=== PATIENT | female | born 1925 | race Caucasian/White ===

== ENCOUNTER 2017-03-12 00:50 | Inpatient (IN) | payer OTHER, MEDICAID ==
[~2017-03-12] VITALS: Ht 160 cm; Wt 49.0 kg
[2017-03-12] VITALS (10 sets, daily range): BP systolic 123–177
[~2017-03-12 00:50] MED LIST: ACT35 PO; AMLODIPINE BESYLATE PO; ASCO-339 PO; BUPR75TA20 PO; CALC-507 PO; LACT1CAP69 PO; PRO40 PO; SOTA80TA PO
[2017-03-12] MEDS ORDERED: NACL 0.9% 1,000 ML IV ONE (01:00)
[2017-03-12 02:05] LABS: ANION GAP 4 (5-15); CALCIUM 8.6 mg/dL (8.4-11.0); CHLORIDE 104 mmol/L (98-107); CREATININE 1.19 mg/dL (0.55-1.30); GLUCOSE 146 mg/dL (70-99); POTASSIUM 3.7 mmol/L (3.5-5.1); SODIUM SERUM 137 mmol/L (136-145); UREA NITROGEN, BLOOD 29 mg/dL (8-21)
[2017-03-12 02:15] LABS: ALANINE AMINOTRANSFERASE 10 U/L (12-78); ALBUMIN 1.6 g/dL (3.4-4.8); ASPARTATE AMINOTRANSFERASE 22 U/L (10-37); TOTAL BILIRUBIN 0.2 mg/dL (0.0-1.0); TOTAL PROTEIN, SERUM 6.8 g/dL (6.4-8.3)
[2017-03-12] MEDS ORDERED: PIPERACILLIN/TAZO 3.38 GM in D5W 50 ML IV ONE (02:15)
[2017-03-12 02:26] LABS: HEMOGLOBIN 9.1 g/dL (12.0-16.0); INR 1.1 (0.8-1.2); MEAN CORPUSCULAR HEMOGLOBIN 28 pg (27-31); MEAN CORPUSCULAR HGB CONC 33 % (32-36); MEAN CORPUSCULAR VOLUME 87 fL (79.0-98.0); PROTHROMBIN TIME 12.1 SECS (9.5-12.5); RED BLOOD CELL COUNT(AUTO) 3.21 MIL/uL (4.2-6.2); RED CELL DISTRIBUTION WIDTH 14.9 % (9.0-15.0)
[2017-03-12 02:33] LABS: PLATELET COUNT (AUTO) 169 K/uL (130-430)
[2017-03-12] MEDS ORDERED: PIPERACILLIN/TAZOBACTAM 3.375 GM/VIAL (ZOSYN) IV ONE (02:39)
[2017-03-12 03:08] LABS: BAND % (MANUAL) 3 % (0-6); BASOPHILS % (MANUAL) 0 % (0-2); EOSINOPHILS % (MANUAL) 0 % (0-7); LYMPHOCYTES % (MANUAL) 2 % (20-46); MONOCYTES % (MANUAL) 10 % (0-11)
[2017-03-12] MEDS ORDERED: CRAN450C PO (03:09)
[2017-03-12] MEDS ORDERED: DOCU-144 PO (03:10)
[2017-03-12] MEDS ORDERED: FLUT16SP16 NS (03:12)
[2017-03-12] MEDS ORDERED: AMLO2.5T2 PO (03:13)
[2017-03-12] MEDS ORDERED: LISI10TA PO (03:13)
[2017-03-12] MEDS ORDERED: MELA3TAB37 PO (03:13)
[2017-03-12] MEDS ORDERED: METO5TAB86 PO (03:14)
[2017-03-12] MEDS ORDERED: SOTA80TA PO (03:15)
[2017-03-12] MEDS ORDERED: ALBUTEROL SULFATE 0.083% 2.5 MG/3 ML VIAL.NEB INH PRN (03:15)
[2017-03-12] MEDS ORDERED: TRAM50TA92 PO (03:16)
[2017-03-12] MEDS ORDERED: ACET-2165 PO ×2 (03:16→03:17)
[2017-03-12] MEDS ORDERED: ASCO500T20 PO (03:17)
[2017-03-12] MEDS ORDERED: FLECTOR 1.3% TD ×2 (03:23→03:24)
[2017-03-12] MEDS ORDERED: traMADol HCL HCL 50 MG TABLET (ULTRAM) PO PRN (03:45)
[2017-03-12] MEDS ORDERED: ACETAMINOPHEN 325 MG TABLET PO PRN (03:45)
[2017-03-12] MEDS ORDERED: VANCOMYCIN HCL 1,000 MG in NS 250 ML IV SCH (06:00)
[2017-03-12] MEDS: ALBUTEROL SULFATE 0.083% 2.5 MG/3 ML VIAL.NEB INH SCH ×5 (07:13→23:14)
[2017-03-12] MEDS: LISINOPRIL 10 MG TABLET (PRINIVIL) PO SCH (08:47)
[2017-03-12] MEDS: DOCUSATE SODIUM 100 MG CAPSULE PO SCH (08:47)
[2017-03-12] MEDS: PANTOPRAZOLE SODIUM 40 MG TAB PO SCH (08:47)
[2017-03-12] MEDS: METOCLOPRAMIDE HCL 10 MG TABLET PO SCH (08:48)
[2017-03-12] MEDS: amLODIPine BESYLATE 5 MG TABLET PO SCH (08:48)
[2017-03-12] MEDS: ASCORBIC ACID 500 MG TABLET PO SCH (08:48)
[2017-03-12] MEDS ORDERED: NON-FORMULARY MEDICATION (Metoclopramide Hcl (Reglan) 5 MG) PO SCH (09:00)
[2017-03-12] MEDS ORDERED: NON-FORMULARY MEDICATION (Cranberry Fruit Concentrate (Cranberry) 450 MG) PO SCH (09:00)
[2017-03-12] MEDS: SOTALOL HCL 80 MG TABLET PO SCH ×2 (09:00→20:42)
[2017-03-12] MEDS ORDERED: FLECTOR 1.3% TD SCH (09:00)
[2017-03-12] MEDS: PIPERACILLIN/TAZO 3.375 GM in NS 50 ML IV SCH ×4 (11:05→23:49)
[2017-03-12] MEDS ORDERED: FUROSEMIDE 40 MG/4 ML VIAL IVP ONE (11:45)
[2017-03-12] MEDS ORDERED: NON-FORMULARY MEDICATION (Melatonin 1 TAB) PO SCH (21:00)
[2017-03-13] MEDS: ALBUTEROL SULFATE 0.083% 2.5 MG/3 ML VIAL.NEB INH SCH ×4 (03:46→15:18)
[2017-03-13] MEDS: PIPERACILLIN/TAZO 3.375 GM in NS 50 ML IV SCH ×2 (05:13→13:03)
[2017-03-13 05:34] VITALS: BP_SYST 162
[2017-03-13 05:54] VITALS: BP_SYST 151
[2017-03-13 07:55] VITALS: BP_SYST 144
[2017-03-13 08:53] LABS: HEMATOCRIT 29.8 % (36-48); HEMOGLOBIN 9.8 g/dL (12.0-16.0); MEAN CORPUSCULAR HEMOGLOBIN 28 pg (27-31); MEAN CORPUSCULAR HGB CONC 33 % (32-36); MEAN CORPUSCULAR VOLUME 85 fL (79.0-98.0); PLATELET COUNT (AUTO) 171 K/uL (130-430); RED BLOOD CELL COUNT(AUTO) 3.52 MIL/uL (4.2-6.2); RED CELL DISTRIBUTION WIDTH 14.9 % (9.0-15.0); WHITE BLOOD COUNT (AUTO) 24.6 K/uL (4.8-10.8)
[2017-03-13 08:59] LABS: ANION GAP 7 (5-15); CALCIUM 8.3 mg/dL (8.4-11.0); CHLORIDE 104 mmol/L (98-107); CREATININE 1.22 mg/dL (0.55-1.30); GLUCOSE 104 mg/dL (70-99); SODIUM SERUM 143 mmol/L (136-145); UREA NITROGEN, BLOOD 28 mg/dL (8-21)
[2017-03-13] MEDS ORDERED: FUROSEMIDE 40 MG/4 ML VIAL IVP SCH (09:00)
[2017-03-13 09:20] LABS: ALANINE AMINOTRANSFERASE 18 U/L (12-78); ALBUMIN 1.7 g/dL (3.4-4.8); ASPARTATE AMINOTRANSFERASE 28 U/L (10-37); THYROID STIMULATING HORMONE 0.78 uIu/mL (0.36-3.74); TOTAL BILIRUBIN 0.4 mg/dL (0.0-1.0); TOTAL PROTEIN, SERUM 6.9 g/dL (6.4-8.3)
[2017-03-13] MEDS: LISINOPRIL 10 MG TABLET (PRINIVIL) PO SCH (10:02)
[2017-03-13] MEDS: PANTOPRAZOLE SODIUM 40 MG TAB PO SCH (10:03)
[2017-03-13] MEDS: DOCUSATE SODIUM 100 MG CAPSULE PO SCH (10:03)
[2017-03-13] MEDS: amLODIPine BESYLATE 5 MG TABLET PO SCH (10:04)
[2017-03-13] MEDS: SOTALOL HCL 80 MG TABLET PO SCH (10:05)
[2017-03-13] MEDS: ASCORBIC ACID 500 MG TABLET PO SCH (10:06)
[2017-03-13] MEDS: METOCLOPRAMIDE HCL 10 MG TABLET PO SCH (10:07)
[2017-03-13 12:10] LABS: APPEARANCE,SPUN,BODY FLUID CLEAR (CLEAR); BF APPEARANCE UNSPUN HAZY (CLEAR); BODY FLUID COLOR YELLOW (LT YELLOW); BODY FLUID SOURCE/ TYPE PLEURAL; BODY FLUID TOTAL VOLUME 1000 mL; SOURCE/TYPE ,BODY FLUID PLEURAL; WBC, BODY FLUID 1033 /uL
[2017-03-13 12:11] LABS: MONOCYTES,BODY FLUID 20 %; NEUTROPHIL, BODY FLUID 80 %; RBC, BODY FLUID 475 /uL
[2017-03-13 12:16] LABS: BAND % (MANUAL) 2 % (0-6); BASOPHILS % (MANUAL) 0 % (0-2); EOSINOPHILS % (MANUAL) 0 % (0-7); LYMPHOCYTES % (MANUAL) 5 % (20-46); MONOCYTES % (MANUAL) 4 % (0-11)
[2017-03-13 12:50] VITALS: BP_SYST 159
[2017-03-13] MEDS ORDERED: POTASSIUM CHLORIDE 20 MEQ/PKT PACKET PO ONE (13:00)
[2017-03-13 14:06] VITALS: BP_SYST 62
[2017-03-13] MEDS ORDERED: MORPHINE 2 MG/ML INJ. SYRINGE IVP PRN ×2 (15:45)
[2017-03-13 18:27] LABS: BODY FLUID GLUCOSE 96 mg/dL
[2017-03-13 18:28] LABS: BODY FLUID TOTAL PROTEIN 3.6 g/dL
== END 2017-03-13 16:39 | disposition expired | DRG 871 ==
LOC: SED 00:50 → STU 03:01
PROVIDERS: ADMIT Internal Medicine; ATTEND Internal Medicine
PROC: 5A09357 Assistance with Respiratory Ventilation, Less than 24 Consecutive Hours, Continuous Positive Airway Pressure (ICD-10-PCS; principal; 2017-03-12)
PROC: 0W993ZX Drainage of Right Pleural Cavity, Percutaneous Approach, Diagnostic (ICD-10-PCS; 2017-03-13)
DX: A41.9 Sepsis, unspecified organism (principal); E43 Unspecified severe protein-calorie malnutrition; J69.0 Pneumonitis due to inhalation of food and vomit; J96.00 Acute respiratory failure, unspecified whether with hypoxia or hypercapnia; I42.9 Cardiomyopathy, unspecified; J90 Pleural effusion, not elsewhere classified; I13.0 Hypertensive heart and chronic kidney disease with heart failure and stage 1 through stage 4 chronic kidney disease, or unspecified chronic kidney disease; Z68.1 Body mass index [BMI] 19.9 or less, adult; I50.9 Heart failure, unspecified; Z66 Do not resuscitate; D63.8 Anemia in other chronic diseases classified elsewhere; M19.90 Unspecified osteoarthritis, unspecified site; E11.22 Type 2 diabetes mellitus with diabetic chronic kidney disease; F03.90 Unspecified dementia, unspecified severity, without behavioral disturbance, psychotic disturbance, mood disturbance, and anxiety; I35.0 Nonrheumatic aortic (valve) stenosis; I48.0 Paroxysmal atrial fibrillation; I48.2 Chronic atrial fibrillation; N18.9 Chronic kidney disease, unspecified; Z88.1 Allergy status to other antibiotic agents; Z87.01 Personal history of pneumonia (recurrent); Z90.49 Acquired absence of other specified parts of digestive tract; Z74.01 Bed confinement status; Z88.6 Allergy status to analgesic agent; Z79.899 Other long term (current) drug therapy
CPT/HCPCS: 32555; 36415; 71010; 80053; 82947-TC; 82962; 83605; 83880; 84157-TC; 84443-TC; 84484; 85007; 85027; 85610-TC; 85730-TC; 86738; 87040-TC; 87070-TC; 87081; 87116; 87305; 88108; 88305; 89051-TC; 89060-TC; 93005; 94640; 94660; 94760; 96361; 96365; 99285; C1729; J1940; J2543; J3370; J7030; J7050; J7060; J8597